=== PATIENT | male | born 1945 | race Caucasian/White ===

== ENCOUNTER 2017-04-02 13:00 | Outpatient (RCR) | payer MEDICARE, BC ==
[~2017-04-02 13:00] MED LIST: ALDACTONE 25MG25 M1 PO; ALDACTONE 25MG25 MG PO; AMOXICILLIN 8751 TAB PO; COREG 6.256.25 MG/TA PO; COREG12.5 MG PO; COUMADIN 1MG1 MG/TAB PO; COUMADIN 3MG3 MG/TAB PO; COZAAR 25MG25 MG/TAB PO; FLONASE NASAL S16 GM NS; ILOTYCIN5 MG/GM OP; K-DUR 10 MEQ T10 MEQ PO; KENALOG0.11 TP; LANOXIN 0.120.125 MG PO; LASIX 40MG TABL40 MG PO; PRILOSEC 20MG20 MG PO; TRIAMCINOLONE A15 GM TP; ULTRAM 50MG TAB50 MG PO; WARFARIN SODIUM4 MG PO; ZOFRAN8 MG PO
== END 2017-05-24 10:51 ==
LOC: WSC 13:00
DX: G57.03 Lesion of sciatic nerve, bilateral lower limbs (principal)
CPT/HCPCS: G8978-GP; G8979-GP

== ENCOUNTER 2018-05-09 09:23 | Emergency (ER) | payer MEDICARE, BC ==
[~2018-05-09] VITALS: Ht 185.4 cm; Wt 83.2 kg
[2018-05-09 09:31] VITALS: BP 113/72; PULSE 85; TEMP 97.4
[2018-05-09] MEDS ORDERED: CEPHALEXIN500 M1 PO (10:26)
== END 2018-05-09 11:00 | disposition home or self-care (01) ==
LOC: COL.ER 09:23
DX: S61.215A Laceration without foreign body of left ring finger without damage to nail, initial encounter (principal); I48.91 Unspecified atrial fibrillation; I50.9 Heart failure, unspecified; Z23 Encounter for immunization; W26.8XXA Contact with other sharp object(s), not elsewhere classified, initial encounter; Y92.89 Other specified places as the place of occurrence of the external cause

== ENCOUNTER 2019-05-24 04:31 | Emergency (ER) | payer MEDICARE, BC ==
[~2019-05-24] VITALS: Ht 180.3 cm; Wt 83.6 kg
[2019-05-24 04:41] VITALS: TEMP 98.9
[2019-05-24 05:27] LABS: BASO % 0.1 % (0.0-2.0); EOS % 0.1 % (0-4.0); GRAN # 6.4 (1.4-6.5); GRAN % 77.6 % (42.2-75.2); HEMATOCRIT 40.5 % (42.0-52.0); HEMOGLOBIN 13.3 g/dl (13.5-18.0); LYMPH % 11.5 % (20.0-51.0); MEAN CELL VOLUME 95 fl (80.0-100.0); MEAN CORPUSCULAR HEMOGLOBIN 31 pg (27.0-31.0); MEAN CORPUSCULAR HGB CONC 33 g/dl (33.0-37.0); MEAN PLATELET VOLUME 10.6 fl (7.4-10.4); MONO # 0.8 (0.1-0.6); PLATELET COUNT 113 K/mm3 (130-400); RED BLOOD COUNT 4.26 M/mm3 (4.20-5.60); REDCELL DISTRIBUTION WIDTH-CV 13.3 % (11.5-14.5)
[2019-05-24 05:34] LABS: INR 1.3 (0.8-3.0); PROTHROMBIN TIME 14.8 SECONDS (9.7-12.8)
[2019-05-24 05:42] LABS: ALANINE AMINOTRANSFERASE 18 U/L (21-72); ALBUMIN 4.3 gm/dL (3.5-5.0); ALKALINE PHOSPHATASE 60 U/L (50-136); ANION GAP 8 mmol/L (7-16); AST,SGOT 22 U/L (15-37); BILIRUBIN,TOTAL 1.2 mg/dL (0.0-1.0); BLOOD UREA NITROGEN 22 mg/dL (9-20); CALCIUM 9.7 mg/dL (8.4-10.2); CARBON DIOXIDE 26 mmol/L (22-30); CHLORIDE 107 mmol/L (98-107); CREATININE, serum 0.97 (0.66-1.25); GLUCOSE 104 mg/dL (74-106); POTASSIUM 4.1 mmol/L (3.4-5.0); SODIUM 140 mmol/L (137-145); TOTAL PROTEIN 7.3 gm/dL (6.4-8.2)
[2019-05-24 05:54] LABS: C-REACTIVE PROTEIN < 0.5 mg/dL (0.0-0.9); TROPONIN-I < 0.012 ng/mL (0.000-0.035)
[2019-05-24 07:37] VITALS: BP 139/88; PULSE 65
== END 2019-05-24 07:37 | disposition home or self-care (01) ==
LOC: COL.ER 04:31
PROVIDERS: Emergency Medicine
DX: R21 Rash and other nonspecific skin eruption (principal); I42.9 Cardiomyopathy, unspecified; I48.91 Unspecified atrial fibrillation; Z87.891 Personal history of nicotine dependence; Z90.89 Acquired absence of other organs; Z79.01 Long term (current) use of anticoagulants; Z79.51 Long term (current) use of inhaled steroids

== ENCOUNTER → 2019-05-24 | Outpatient (CLI) | payer MEDICARE, BC ==
[~2019-05-24] VITALS: Ht 180.3 cm; Wt 84.1 kg
[~2019-05-24] MED LIST changes: +CEPHALEXIN500 M1 PO; +COUMADIN4 MG PO
[2019-05-24 15:27] VITALS: BP 153/83; PULSE 76; TEMP 97.9
== END ==
LOC: COL.ER 15:16 → EDSTATUS 16:35
DX: R00.0 Tachycardia, unspecified (principal); R21 Rash and other nonspecific skin eruption; Z79.51 Long term (current) use of inhaled steroids; Z79.01 Long term (current) use of anticoagulants
CPT/HCPCS: J1644

== ENCOUNTER 2019-05-25 13:00 | Outpatient (CLI) | payer MEDICARE, BC ==
[2019-05-25] VITALS (8 sets, daily range): BP systolic 124–135; BP diastolic 75–83; PULSE 68–76
[~2019-05-25] VITALS: Ht 180.3 cm; Wt 85.0 kg
[2019-05-25 13:35] LABS: INR 1.1 (0.8-3.0); PROTHROMBIN TIME 12.5 SECONDS (9.7-12.8)
--- NOTE | 2019-05-25 14:47 | NUR ---
Pt arrived frm procedure,report from JENNIFER Acevedo.
--- NOTE | 2019-05-25 16:21 | NUR ---
Discharge instructions given to pt.pt verbalizes understanding.Dr Dorado came to see pt,note provided per their request.Pt escorted out.
== END 2019-05-25 16:56 | disposition home or self-care (01) ==
LOC: COL.RAD 13:00
PROVIDERS: Orthopaedic Surgery Sports Medicine
DX: M51.26 Other intervertebral disc displacement, lumbar region (principal); M48.061 Spinal stenosis, lumbar region without neurogenic claudication; M51.36 Other intervertebral disc degeneration, lumbar region

== ENCOUNTER 2020-07-13 11:04 | Emergency (ER) | payer MEDICARE, BC ==
[~2020-07-13] VITALS: Ht 180.3 cm; Wt 81.8 kg
[2020-07-13 11:11] VITALS: TEMP 97.3
[2020-07-13 11:50] LABS: EOS # 0.1 (0.0-0.7); EOS % 1.4 % (0-4.0); GRAN # 4.9 (1.4-6.5); GRAN % 63.4 % (42.2-75.2); HEMATOCRIT 44.1 % (42.0-52.0); HEMOGLOBIN 14.3 g/dl (13.5-18.0); LYMPH # 1.7 (1.2-3.4); LYMPH % 22.2 % (20.0-51.0); MEAN CELL VOLUME 94 fl (80.0-100.0); MEAN CORPUSCULAR HEMOGLOBIN 30 pg (27.0-31.0); MEAN CORPUSCULAR HGB CONC 32 g/dl (33.0-37.0); MONO % 12.7 % (1.7-9.3); PLATELET COUNT 120 K/mm3 (130-400); RED BLOOD COUNT 4.71 M/mm3 (4.20-5.60); REDCELL DISTRIBUTION WIDTH-CV 13.4 % (11.5-14.5)
[2020-07-13 12:01] LABS: POTASSIUM 4.1 mmol/L (3.4-5.0)
[2020-07-13 12:02] LABS: ALBUMIN 4.6 gm/dL (3.5-5.0); BILIRUBIN,TOTAL 1.2 mg/dL (0.0-1.0); CALCIUM 9.5 mg/dL (8.4-10.2); CREATININE, serum 1.28 (0.66-1.25); TOTAL PROTEIN 7.7 gm/dL (6.4-8.2)
[2020-07-13 12:10] LABS: INR 3.5 (0.8-3.0); PROTHROMBIN TIME 40.1 SECONDS (9.7-12.8)
[2020-07-13 12:20] LABS: D-DIMER < 200.00 ng/mLDDu (200-230)
[2020-07-13 13:30] VITALS: BP 130/88; PULSE 69
== END 2020-07-13 13:50 | disposition home or self-care (01) ==
LOC: COL.ER 11:04
PROVIDERS: Family Medicine
DX: I50.9 Heart failure, unspecified (principal); Z79.01 Long term (current) use of anticoagulants
CPT/HCPCS: J1940

== ENCOUNTER 2021-06-27 10:39 | Emergency (ER) | payer MEDICARE, BC ==
[~2021-06-27] VITALS: Ht 180.3 cm; Wt 82.7 kg
[2021-06-27 10:51] VITALS: TEMP 98
[2021-06-27 11:45] LABS: BASO % 0.2 % (0.0-2.0); EOS # 0.1 K/mm3 (0.0-0.7); EOS % 1.9 % (0.0-4.0); GRAN # 3.4 K/mm3 (1.4-6.5); GRAN % 58.2 % (42.2-75.2); HEMATOCRIT 38.9 % (42.0-52.0); LYMPH # 1.1 K/mm3 (1.2-3.4); LYMPH % 19.7 % (20.0-51.0); MEAN CELL VOLUME 93 fl (80.0-100.0); MEAN CORPUSCULAR HEMOGLOBIN 31 pg (27-31); MEAN CORPUSCULAR HGB CONC 33 g/dl (33.0-37.0); MEAN PLATELET VOLUME 11.6 fl (7.4-10.4); MONO # 1.1 K/mm3 (0.1-0.6); MONO % 19.8 % (1.7-9.3); PLATELET COUNT 99 K/mm3 (130-400); REDCELL DISTRIBUTION WIDTH-CV 13.8 % (11.5-14.5)
[2021-06-27 12:17] LABS: ALANINE AMINOTRANSFERASE 12 U/L (0-55); ALBUMIN 3.9 gm/dL (3.4-4.8); ALKALINE PHOSPHATASE 44 U/L (40-150); ANION GAP 11 mmol/L (7-16); AST,SGOT 19 U/L (5-34); BLOOD UREA NITROGEN 16 mg/dL (8-26); CALCIUM 8.9 mg/dL (8.4-10.2); CARBON DIOXIDE 22 mmol/L (23-31); CHLORIDE 104 mmol/L (98-107); CREATININE, serum 1.25 mg/dL (0.72-1.25); GLUCOSE 98 mg/dL (70-99); POTASSIUM 4.1 mmol/L (3.5-4.5); SODIUM 137 mmol/L (136-145); TOTAL PROTEIN 6.8 gm/dL (6.2-8.1)
[2021-06-27 12:36] LABS: TROPONIN-I < 0.010 ng/mL (0.00-0.033)
[2021-06-27 12:50] VITALS: BP 110/75; PULSE 75
== END 2021-06-27 12:56 | disposition home or self-care (01) ==
LOC: COL.ER 10:39
PROVIDERS: Nurse Practitioner
DX: R05.9 Cough, unspecified (principal); R06.02 Shortness of breath; I25.10 Atherosclerotic heart disease of native coronary artery without angina pectoris; I10 Essential (primary) hypertension; Z95.0 Presence of cardiac pacemaker; Z87.891 Personal history of nicotine dependence; Z79.899 Other long term (current) drug therapy; Z79.01 Long term (current) use of anticoagulants

== ENCOUNTER → 2022-09-08 | Outpatient (CLI) | payer MEDICARE, BC | LOC: COL.PUL 07:33 | DX: R06.00 Dyspnea, unspecified (principal); R06.02 Shortness of breath ==

== ENCOUNTER 2024-01-23 12:59 | Inpatient (IN) | payer MEDICARE, BC ==
[~2024-01-23] VITALS: Ht 180.3 cm; Wt 82.1 kg
[~2024-01-23 12:59] MED LIST changes: +FLOMAX 0.40.4 MG/CAP PO; +MIRALAX238G PO; +ZANAFLEX CAPSULE2 MG PO
[2024-01-23] MEDS ORDERED: NS 500 ML IV ONE (13:45)
[2024-01-23 13:53] LABS: BASO % 0.3 % (0.0-2.0); EOS # 0.1 K/mm3 (0.0-0.7); EOS % 2.1 % (0.0-4.0); GRAN # 4.5 K/mm3 (1.4-6.5); GRAN % 70.4 % (42.2-75.2); HEMATOCRIT 41.1 % (42.0-52.0); HEMOGLOBIN 13.5 g/dl (13.5-18.0); LYMPH # 1.2 K/mm3 (1.2-3.4); LYMPH % 19.6 % (20.0-51.0); MEAN CELL VOLUME 94 fl (80.0-100.0); MEAN CORPUSCULAR HEMOGLOBIN 31 pg (27-31); MEAN CORPUSCULAR HGB CONC 33 g/dl (33.0-37.0); MEAN PLATELET VOLUME 12.3 fl (7.4-10.4); MONO # 0.5 K/mm3 (0.1-0.6); MONO % 7.3 % (1.7-9.3); PLATELET COUNT 103 K/mm3 (130-400); RED BLOOD COUNT 4.38 M/mm3 (4.20-5.60); REDCELL DISTRIBUTION WIDTH-CV 14.1 % (11.5-14.5)
[2024-01-23 14:11] LABS: ALBUMIN 3.9 g/dL (3.4-4.8); BILIRUBIN,TOTAL 0.8 mg/dL (0.2-1.2); C-REACTIVE PROTEIN 0.06 mg/dL (0.00-0.50); CALCIUM 9.6 mg/dL (8.4-10.2); CREATININE, serum 1.36 mg/dL (0.72-1.25); MAGNESIUM 2.3 mg/dL (1.6-2.6); POTASSIUM 4.5 mEq/L (3.5-4.5); TOTAL PROTEIN 6.9 g/dl (6.2-8.1)
[2024-01-23 14:31] LABS: INR 4.6 (0.8-3.0)
[2024-01-23 14:40] LABS: PROTHROMBIN TIME 48.4 SECONDS (9.7-12.8)
[2024-01-23 15:15] LABS: COLLECTION METHOD CLEAN CATCH
[2024-01-23 15:18] LABS: PH 6.5 (5.0-8.5); URINE APPEARANCE CLEAR (CLEAR/HAZY); URINE BLOOD NEGATIVE (NEGATIVE); URINE COLOR YELLOW (YELLOW); URINE GLUCOSE NEGATIVE (NEGATIVE); URINE KETONE NEGATIVE (NEGATIVE); URINE NITRATE NEGATIVE (NEGATIVE); URINE PROTEIN(semi-quant) NEGATIVE (NEGATIVE); URINE UROBILINOGEN 0.2 E.U/dL (0.2-1.0)
[2024-01-23] MEDS ORDERED: Acetaminophen 500 MG TAB PO PRN (16:00)
[2024-01-23] MEDS ORDERED: Ondansetron 4 MG/2 ML VIAL IV PRN (16:00)
[2024-01-23] MEDS ORDERED: Polyethylene Glycol 3350 17 GM PDS PO SCH (16:03)
[2024-01-23] MEDS ORDERED: Iohexol 300 - 100 ML VIAL IV ONE (16:54)
--- NOTE | 2024-01-23 17:30 | NUR ---
PATIENT ADMITED INTO ROOM 324 FROM ER. NO CURRENT C/O ABD. NPO. UPON ARRIVAL PATIENT HAS IV ABX INFUSING VIA PUMP INTO RIGHT AC IV. HEAD TO TOE ASSESSMENT COMPLETE. AT BEDSIDE. ORIENTED TO ROOM. CALL LIGHT IN REACH. LEFT MESSAGE FOR SURGEON ABOUT CONSULT.
[2024-01-23 17:39] VITALS: BP 151/84; PULSE 64; TEMP 97.6
[2024-01-23] MEDS ORDERED: LASIX 20MG TABL20 MG PO (17:44)
[2024-01-23] MEDS ORDERED: COUMADIN 3MG3 MG/TAB PO (17:48)
[2024-01-23] MEDS ORDERED: COUMADIN4 MG PO (17:49)
[2024-01-23] MEDS ORDERED: tiZANidine 4 MG TAB PO PRN (18:00)
[2024-01-23] MEDS ORDERED: Losartan 25 MG TAB PO SCH (18:00)
[2024-01-23 20:00] VITALS: BP 155/84; PULSE 79; TEMP 97.5
[2024-01-23 21:00] VITALS: BP_SYST 155
[2024-01-23] MEDS ORDERED: Carvedilol 6.25 MG TAB PO SCH ×2 (21:00)
[2024-01-24] VITALS (12 sets, daily range): BP systolic 93–145; BP diastolic 53–81; PULSE 58–77; TEMP 97.5–98.1
[2024-01-24 06:32] LABS: BASO % 0.2 % (0.0-2.0); EOS # 0.2 K/mm3 (0.0-0.7); GRAN # 2.9 K/mm3 (1.4-6.5); GRAN % 56.4 % (42.2-75.2); HEMOGLOBIN 11.9 g/dl (13.5-18.0); LYMPH # 1.4 K/mm3 (1.2-3.4); LYMPH % 27.3 % (20.0-51.0); MEAN CELL VOLUME 91 fl (80.0-100.0); MEAN CORPUSCULAR HEMOGLOBIN 29 pg (27-31); MEAN CORPUSCULAR HGB CONC 32 g/dl (33.0-37.0); MEAN PLATELET VOLUME 11.9 fl (7.4-10.4); MONO # 0.7 K/mm3 (0.1-0.6); MONO % 12.9 % (1.7-9.3); PLATELET COUNT 94 K/mm3 (130-400); RED BLOOD COUNT 4.05 M/mm3 (4.20-5.60)
[2024-01-24 06:35] LABS: HEMATOCRIT 36.9 % (42.0-52.0)
[2024-01-24 06:36] LABS: INR 4.9 (0.8-3.0)
[2024-01-24 06:40] LABS: PROTHROMBIN TIME 51.9 SECONDS (9.7-12.8)
[2024-01-24 07:03] LABS: ALBUMIN 3.4 g/dL (3.4-4.8); BILIRUBIN,TOTAL 0.6 mg/dL (0.2-1.2); CALCIUM 9.1 mg/dL (8.4-10.2); CREATININE, serum 1.25 mg/dL (0.72-1.25); POTASSIUM 4.6 mEq/L (3.5-4.5); TOTAL PROTEIN 5.9 g/dl (6.2-8.1)
--- NOTE | 2024-01-24 07:30 | NUR ---
SHIFT ASSESSMENT COMPLETE. VSS. PATIENT RESTING IN BED NPO SINCE MIDNIGHT, AT BEDSIDE. PATIENT STATES NO PAIN AT THIS TIME. PATIENT HAS A ULTRA SOUND THIS AM AND THEN PER DR. VELIZ CAN EAT. PATIENT EXPRESS UNDERSTANDING. PATIENT HAS NO REQUEST OR NEEDS AT THIS TIME. CALL LIGHT IN REACH.
--- NOTE | 2024-01-24 07:30 | NUR ---
ATTEMPTED TO NOTIFY DR GONZÁLES OF AM LABS, LEFT VM FOR HIM TO CALL [facility].
[2024-01-24] MEDS ORDERED: Carvedilol 6.25 MG TAB PO SCH (09:00)
[2024-01-24] MEDS ORDERED: Spironolactone 12.5 MG TAB PO SCH (09:00)
[2024-01-24] MEDS ORDERED: Digoxin 0.125 MG TAB PO SCH (09:00)
--- NOTE | 2024-01-24 09:57 | NUR ---
donation worker met with pt and , Chrissy [phone] to discuss discharge planning. They report to live together in [place]. Pt sees Dr. Wilson for PCP needs [facility]. He is independent with ADLS and uses a cane for DME. reports [facility] is at home listing her. SW advised her to bring a copy in if able, she is agreeable. Discharge Plan: home
--- NOTE | 2024-01-24 12:11 | NUR ---
Data: Patient and visitor declined spiritual care visit offered during [facility] rounds. Patient did say he is hopeful that the procedure he thought he would need was not actually needed. He believes the antibiotics took care of it. He hopes to be discharged sooner than expected. Assessment: Patient and visitor are hopeful not to need the procedure. Plan of Care: [facility] provided supportive listening. Chaplains will remain available as needed/requested while Patient is admitted to this hospital.
--- NOTE | 2024-01-24 21:00 | NUR ---
PT A&O X4 LAYING IN BED. VSS. PT DENIES ABD PAIN OR N/V. INT TO RT AC PATENT. PT DENYING FURTHER NEEDS. CALL LIGHT IN REACH
[2024-01-25] VITALS (8 sets, daily range): BP systolic 137–151; BP diastolic 67–88; PULSE 69–76; TEMP 97.6–98.1
[2024-01-25 05:44] LABS: BASO % 0.2 % (0.0-2.0); EOS # 0.1 K/mm3 (0.0-0.7); EOS % 3.1 % (0.0-4.0); GRAN # 2.4 K/mm3 (1.4-6.5); GRAN % 52.9 % (42.2-75.2); HEMATOCRIT 37.5 % (42.0-52.0); HEMOGLOBIN 12.3 g/dl (13.5-18.0); LYMPH # 1.4 K/mm3 (1.2-3.4); LYMPH % 30.9 % (20.0-51.0); MEAN CELL VOLUME 91 fl (80.0-100.0); MEAN CORPUSCULAR HEMOGLOBIN 30 pg (27-31); MEAN CORPUSCULAR HGB CONC 33 g/dl (33.0-37.0); MEAN PLATELET VOLUME 12.2 fl (7.4-10.4); MONO # 0.6 K/mm3 (0.1-0.6); MONO % 12.7 % (1.7-9.3); PLATELET COUNT 97 K/mm3 (130-400); RED BLOOD COUNT 4.13 M/mm3 (4.20-5.60); REDCELL DISTRIBUTION WIDTH-CV 14.2 % (11.5-14.5)
--- NOTE | 2024-01-25 05:49 | NUR ---
PT RESTING IN BED. NO C/O ABD PAIN OR N/V THROUGHOUT THE NIGHT. CALL LIGHT IN REACH
[2024-01-25 05:54] LABS: INR 3.9 (0.8-3.0); PROTHROMBIN TIME 40.9 SECONDS (9.7-12.8)
[2024-01-25 05:58] LABS: ALBUMIN 3.6 g/dL (3.4-4.8); BILIRUBIN,TOTAL 1.1 mg/dL (0.2-1.2); CALCIUM 9.3 mg/dL (8.4-10.2); CREATININE, serum 1.26 mg/dL (0.72-1.25); POTASSIUM 4.2 mEq/L (3.5-4.5); TOTAL PROTEIN 6.2 g/dl (6.2-8.1)
--- NOTE | 2024-01-25 13:00 | NUR ---
PATIENT WALKING HALLS, UPSET BECAUSE HE IS IMPULSIVE AT TIMES AND NEARLY FELL IN THE [place]. PATIENT IS ANXIOUS TO DISCHARGE HOME. REPORTS MILD UNDERLINED DEMENTIA AT BASELINE
--- NOTE | 2024-01-25 13:55 | NUR ---
GI AT BEDSIDE TO EVAL AND TREAT, SEE NOTES.
--- NOTE | 2024-01-25 15:33 | NUR ---
PATIENT DISCHARGING HOME. GAVE DISCHARGE INSTRUCTIONS TO PATIENT & , ANSWERED QUESTIONS/CONCERNS. DISCUSSED F/U APTS. DC'D TELE. DC'D IV SITE AND COVERED SITE WITH [employer]. PATIENT IS DRESSED, PACKED AND DISCHARGED TO PERSONAL VEHICLE WITH .
== END 2024-01-25 15:33 | disposition home or self-care (01) | DRG 392 ==
LOC: COL.ER 12:59 → SURG 15:40
PROVIDERS: Emergency Medicine; ADMIT Internal Medicine
DX: R10.9 Unspecified abdominal pain (principal); Z79.01 Long term (current) use of anticoagulants; I48.91 Unspecified atrial fibrillation; Z95.0 Presence of cardiac pacemaker; I10 Essential (primary) hypertension
CPT/HCPCS: J0295; J7040; Q9967

== ENCOUNTER 2024-01-28 17:57 | Emergency (ER) | payer MEDICARE, BC ==
[~2024-01-28] VITALS: Ht 180.3 cm; Wt 79.5 kg
[~2024-01-28 17:57] MED LIST changes: +LASIX 20MG TABL20 MG PO
[2024-01-28 19:51] LABS: BASO % 0.2 % (0.0-2.0); EOS # 0.2 K/mm3 (0.0-0.7); EOS % 3.6 % (0.0-4.0); GRAN # 2.5 K/mm3 (1.4-6.5); HEMATOCRIT 40.3 % (42.0-52.0); LYMPH # 1.7 K/mm3 (1.2-3.4); LYMPH % 32.9 % (20.0-51.0); MEAN CELL VOLUME 93 fl (80.0-100.0); MEAN CORPUSCULAR HEMOGLOBIN 30 pg (27-31); MEAN CORPUSCULAR HGB CONC 32 g/dl (33.0-37.0); MEAN PLATELET VOLUME 12.4 fl (7.4-10.4); MONO # 0.7 K/mm3 (0.1-0.6); MONO % 13.1 % (1.7-9.3); PLATELET COUNT 95 K/mm3 (130-400); RED BLOOD COUNT 4.34 M/mm3 (4.20-5.60)
[2024-01-28 19:55] LABS: INR 1.5 (0.8-3.0); PROTHROMBIN TIME 16.6 SECONDS (9.7-12.8)
[2024-01-28 21:21] LABS: ALBUMIN 4.1 g/dL (3.4-4.8); BILIRUBIN,TOTAL 0.7 mg/dL (0.2-1.2); CREATININE, serum 1.33 mg/dL (0.72-1.25); POTASSIUM 4.6 mEq/L (3.5-4.5); TOTAL PROTEIN 7.3 g/dl (6.2-8.1)
[2024-01-28 22:02] VITALS: BP 125/86; PULSE 75; TEMP 98.3
== END 2024-01-28 22:02 | disposition home or self-care (01) ==
LOC: COL.ER 17:57
PROVIDERS: Emergency Medicine
DX: R79.1 Abnormal coagulation profile (principal); Z79.01 Long term (current) use of anticoagulants